=== PATIENT | male | born 1940 | race Caucasian/White ===

== ENCOUNTER 2019-05-02 | Day surgery (SDC) | payer MEDICARE ==
[~2019-05-02] MED LIST: PERCOCET 5/325M1 TAB PO
== END 2019-05-02 09:38 | disposition home or self-care (01) ==
PROC: 0DBG8ZX Excision of Left Large Intestine, Via Natural or Artificial Opening Endoscopic, Diagnostic (ICD-10-PCS; principal; 2019-05-02)
PROC: 0DBF8ZX Excision of Right Large Intestine, Via Natural or Artificial Opening Endoscopic, Diagnostic (ICD-10-PCS; 2019-05-02)
DX: K57.31 Diverticulosis of large intestine without perforation or abscess with bleeding (principal); K50.10 Crohn's disease of large intestine without complications; Q43.8 Other specified congenital malformations of intestine; K64.8 Other hemorrhoids